=== PATIENT | male | born 1975 | race Hispanic/Latino ===

== ENCOUNTER 2018-09-17 18:28 | Emergency (ER) | payer OTHER ==
[~2018-09-17] VITALS: Ht 167.6 cm; Wt 81.6 kg
[2018-09-17] MEDS ORDERED: MORPHINE SULFATE INJ 4 MG/ML INJ 1ML IV ONE (18:30)
[2018-09-17] MEDS ORDERED: KETOROLAC TROMETHAMINE 30 MG/ML VIAL IV ONE (18:30)
[2018-09-17] MEDS ORDERED: ONDANSETRON HCL INJ 2MG/ML 2ML 2 MG/ML VIAL IV ONE (18:30)
[2018-09-17] MEDS ORDERED: SODIUM CHLORIDE 0.9% 1000ML 1,000 ML IV STA (18:30)
--- NOTE | 2018-09-17 18:40 | NUR ---
rec'd pt in rm 8 with c/o left lower quadrant pain. placed on the monitor and in a gown. v.s.s. able to make needs known. bed low/locked and call hill in hand. family in room at side
[2018-09-17 18:47] LABS: BASOPHILS # (AUTO) 0.1 (0.0-0.1); BASOPHILS % 0.5 % (0.0-1.0); EOSINOPHILS # (AUTO) 0.1 (0.0-0.4); EOSINOPHILS % 0.6 % (0.0-6.0); HEMATOCRIT 40.6 % (38.2-49.6); HEMOGLOBIN 14.3 g/dL (14.0-18.0); LYMPHOCYTES # (AUTO) 2.5 (1.0-3.2); LYMPHOCYTES % 25.9 % (18.0-39.1); MEAN CORPUSCULAR HGB CONC 35.2 g/dL (31-35); MEAN CORPUSCULAR VOLUME 85.3 fL (81-99); MONOCYTES # (AUTO) 0.8 (0.2-0.8); NEUTROPHILS # (AUTO) 6.1 (2.1-6.9); NEUTROPHILS % 64.6 % (38.7-80.0); PLATELET COUNT 234 x10e3/uL (140-360); RED BLOOD COUNT 4.76 x10e6/uL (4.3-5.7)
[2018-09-17 19:04] LABS: ALANINE AMINOTRANSFERASE 46 IU/L (0-55); ALBUMIN 4.6 g/dL (3.5-5.0); ALBUMIN/GLOBULIN RATIO 1.6 (0.8-2.0); ALKALINE PHOSPHATASE 83 IU/L (40-150); ANION GAP 15.1 mmol/L (8-16); BLOOD UREA NITROGEN 11 mg/dL (7-26); BUN/CREATININE RATIO 11 (6-25); CALCIUM 9.2 mg/dL (8.4-10.2); CARBON DIOXIDE 22 mmol/L (22-29); CHLORIDE 103 mmol/L (98-107); CREATININE, SERUM 1.04 mg/dL (0.72-1.25); EST GLOMERULAR FILTRATION RATE > 60 ML/MIN (60-); GLUCOSE 128 mg/dL (74-118); POTASSIUM 4.1 mmol/L (3.5-5.1); SODIUM 136 mmol/L (136-145)
--- NOTE | 2018-09-17 19:04 | NUR ---
urine collected and sent to the lab. meds given and pt has tolerated well. rated pain 7/10
--- NOTE | 2018-09-17 19:09 | Diagnostic Imaging Report ---
CT Abdomen and Pelvis without contrast INDICATION: Flank pain, left TECHNIQUE: Thin collimation axial images obtained from the diaphragm to the level of the pubic symphysis without nonionic intravenous contrast. Dose reduction techniques used: Automated exposure control, adjustment of the mAs and/or kVp according to patient size, standardized low-dose protocol, and/or iterative reconstruction technique. RADIATION DOSE: Total DLP: 343.76 mGy*cm Estimated effective dose: (DLP x 0.015 x size factor) mSv CTDIvol has been reviewed. It is below the limits set by the Radiation Protocol Committee (RPC). COMPARISON: None. ABDOMEN FINDINGS: Lung Bases: Tiny nodule along the right major fissure. The visualized portion of the mediastinum is normal. Liver: Low attenuating mass in the posterior right lobe is solid and measures 5.0 x 5.4 cm. No mass in the left lobe. Gallbladder: Present and appears normal. No ductal dilatation. Pancreas: Normal attenuation without mass. Spleen: Normal size without mass. Adrenal Glands: No evidence for mass. Kidneys: Right: No renal calculus. No cortical mass or hydronephrosis Left: Mild renal edema. 3 mm calcification in the upper pole. Trace perinephric inflammation. Mild fullness of the collecting system. Lymph Nodes: No enlarged abdominal or retroperitoneal lymph nodes.. Aorta: Normal in diameter. PELVIS FINDINGS: Bowel: Stomach: Collapsed but otherwise normal. Small Bowel: Normal in caliber with normal wall thickness. Large Bowel: Normal in caliber with normal wall thickness. Appendix: Normal. Bladder: Under distended. Ureters: The left ureter is mildly distended throughout its course. The distal left ureter contains a 4 mm calculus just before the UVJ. The right ureter is normal. Peritoneum/retroperitoneum: No free fluid or fluid collection. Bones: Unremarkable for age. Soft tissues: Unremarkable. IMPRESSION: 1. Calculus in the distal left ureter with mild hydroureteronephrosis. Left intrarenal calculus as described above. 2. Soft tissue mass should be further characterized with CT or MRI dedicated to the liver. 3. Punctate nodule in the right lung is statistically benign given the patient's age. Signed by: Dr. Wilmer Murphy MD on 09/17/2018 7:05 PM
[2018-09-17 19:17] LABS: BILIRUBIN,URINE NEGATIVE (NEGATIVE); CLARITY,URINE SL CLOUDY (CLEAR); KETONES,URINE 1+ (NEGATIVE); LEUKOCYTE ESTERASE ,URINE NEGATIVE (NEGATIVE); NITRITE,URINE NEGATIVE (NEGATIVE); PROTEIN,URINE DIPSTICK TRACE (NEGATIVE); URINE UROBILINOGEN 1 mg/dL (0.2 - 1)
[2018-09-17 19:19] LABS: COLOR,URINE STRAW (YELLOW)
[2018-09-17 19:30] LABS: BACTERIA,URINE MODERATE /HPF; EPITHELIAL CELLS,URINE FEW /LPF; RBC,URINE >50 /HPF (0-5)
== END 2018-09-17 19:50 | disposition home or self-care (01) ==
LOC: ER 18:28
DX: M54.5 Low back pain (principal); R11.0 Nausea; R10.32 Left lower quadrant pain; N20.1 Calculus of ureter
CPT/HCPCS: 36415; 74176; 80053; 81001; 85025; 99284; J1885; J2405; J7030